=== PATIENT | female | born 1965 | race Caucasian/White ===

== ENCOUNTER → 2018-07-10 16:13 | Outpatient (CLI) | payer OTHER, SELFPAY ==
--- NOTE | 2018-07-10 | DI.MRI.S_ITS ---
PROCEDURE: MR CERVICAL SPINE WO CON INDICATIONS: DISC DEGENERATION TECHNIQUE: Noncontrast sagittal T1 spin echo and T2 fast spin echo, sagittal STIR, foraminal oblique sagittal T2 fast spin echo, and axial gradient echo or T2 fast spin echo through the cervical spine. COMPARISON: [facility], US, THYROID, 02/07/2011, 10:06. [facility], US, THYROID, 07/18/2017, 14:27. FINDINGS: Image quality: Excellent. Alignment and Curvature: Reversal of the normal cervical lordosis, centered at C4-C5. Bone Marrow: Diffuse endplate degenerative spurring and sclerosis. Spinal Cord: Visualized spinal cord has normal size and signal. Incidentally noted low-lying cerebellar tonsils Paraspinous Soft Tissues: Thyroid is diffusely enlarged, with heterogeneous nodular/cystic appearance, and further assessment could be performed with dedicated ultrasound. C2-C3: Normal appearance. C3-C4: Normal appearance. C4-C5: Bilateral uncovertebral arthropathy and posterior intervening disc osteophyte complex, and bilateral facet disease. Minimal canal narrowing. Moderate right and mild left foraminal stenoses. C5-C6: Bilateral uncovertebral arthropathy and posterior intervening disc osteophyte complex, which is mildly asymmetric, left greater than right, and bilateral facet arthropathy. Mild to moderate canal narrowing with effacement of the anterior thecal sac. Severe left and moderate right foraminal narrowing C6-C7: Bilateral uncovertebral arthropathy and posterior intervening disc osteophyte complex, and bilateral facet disease. Mild/moderate canal narrowing. Mild right and severe left foraminal stenoses. C7-T1: Bilateral uncovertebral arthropathy and posterior intervening disc osteophyte complex, mild. No canal stenosis. No left foraminal narrowing. Nsog-lh-enebtsim right foraminal stenosis. IMPRESSION: [id number] canal narrowing at C5-C6 and C6-C7. Severe left foraminal stenoses at C5-6 and C6-C7. [id number]-[id number] right C7-T1 and C4-C5 foraminal stenoses. Heterogeneous enlarged thyroid. Continued surveillance with thyroid ultrasound recommended Reversal of the normal cervical lordosis Incidentally noted are low-lying cerebellar tonsils Dictated by: Damien Brenner M.D. on 07/13/2018 at 8:15 Approved by: Damien Brenner M.D. on 07/13/2018 at 8:30
== END ==
PROVIDERS: Visit Provider Orthopaedic Surgery
DX: M48.02 Spinal stenosis, cervical region (principal); E04.9 Nontoxic goiter, unspecified
CPT/HCPCS: 72141

== ENCOUNTER → 2018-08-17 14:00 | Outpatient (CLI) | payer OTHER, SELFPAY ==
--- NOTE | 2018-08-17 | DI.MG.S_ITS ---
BILATERAL DIGITAL SCREENING MAMMOGRAM 3D/2D WITH CAD: 08/17/2018 CLINICAL: Routine screening. Comparison is made to exam dated: 09/10/2016 mammogram - [facility]. The tissue of both breasts is heterogeneously dense. This may lower the sensitivity of mammography. Current study was also evaluated with a Computer Aided Detection (CAD) system. No significant masses, calcifications, or other findings are seen in either breast. There has been no significant interval change. IMPRESSION: NEGATIVE There is no mammographic evidence of malignancy. A 1 year screening mammogram is recommended. This exam was interpreted at Station ID: [id number]. NOTE: For mammograms, a report in lay terms will be sent to the patient. Approximately 15% of breast malignancies will not be visualized mammographically. In the management of a palpable breast mass, a negative mammogram must not discourage biopsy of a clinically suspicious lesion. Electronically Signed By: Branden wilson/codi:08/17/2018 15:55:29 letter sent: Normal Exam ACR BI-RADS Category 1: Negative [id number]
--- NOTE | 2018-08-17 | DI.US.S_ITS ---
PROCEDURE: US THYROID INDICATIONS: Nontoxic goiter, unspec ROUTINE SCREENING WILLIAM TECHNIQUE: Real-time scanning was performed of the thyroid gland, with image documentation. COMPARISON: [facility], US, THYROID, 07/18/2017, 14:27. FINDINGS: Right: Thyroid lobe measures 7.6 x 4.2 x 2.8 cm, and is homogeneous in echotexture. Left: Thyroid lobe measures 6.6 x 3.4 x 1.9 cm, and is homogenous in echotexture. Isthmus: 1.3 mm thick. Nodule number: 1 Location: Right mid Size: Increased measuring 2.4 x 1.4 x 2.3 cm. Composition: Predominately solid Echogenicity: Hypoechoic Shape: wider than tall. Margins: Smooth Echogenic foci: None Total points: 4 ACR TI-RADS category: Moderately suspicious Nodule number: 2 Location: Left superior Size: Unchanged at 1.8 x 2.6 x 1.8 cm. Composition: Solid Echogenicity: Hypoechoic Shape: wider than tall. Margins: Smooth Echogenic foci: None Total points: 4 ACR TI-RADS category: Moderately suspicious Nodule number: 3 Location: Left mid Size: Unchanged at 1.1 x 0.8 x 1.0 cm. Composition: Mixed cystic and solid Echogenicity: Heterogeneous Shape: wider than tall. Margins: Smooth Echogenic foci: None Total points: 3 ACR TI-RADS category: Mildly suspicious Nodule number: 4 Location: Left isthmus Size: 1.1 x 1.2 x 1.6 cm. Composition: Predominately cystic Echogenicity: Anechoic Shape: wider than tall. Margins: Smooth Echogenic foci: None Total points: 0 ACR TI-RADS category: Benign colloid cyst IMPRESSION: Bilateral thyroid nodules as above. Recommend fine needle aspiration involving the #1 right midpole and # 2 left superior pole nodules and continued sonographic surveillance of the additional nodules as below. ACR TI-RADS definitions and recommendations: TI-RADS 1 (benign): 0 points. FNA not needed. TI-RADS 2 (not suspicious): 2 points. FNA not needed. TI-RADS 3 (mildly suspicious): 3 points. * FNA if 2.5 cm or larger, follow up if 1.5 cm or larger (at 1, 3, and 5 years). TI-RADS 4 (moderately suspicious): 4-6 points. * FNA if 1.5 cm or larger, follow up if 1 cm or larger (at 1, 2, 3, and 5 years). TI-RADS 5 (highly suspicious): 7 points or more. * FNA if 1 cm or larger, follow up if 0.5 cm or larger (every year for 5 years). Dictated by: Joey DOLL Interpreted: Danii Montoya MD on 08/17/2018 at 15:44 Approved by: Danii Montoya M.D. on 08/17/2018 at 16:59
== END ==
PROVIDERS: PCP Naturopath; Visit Provider Naturopath
DX: Z12.31 Encounter for screening mammogram for malignant neoplasm of breast (principal); E04.2 Nontoxic multinodular goiter
CPT/HCPCS: 76536; 77063; 77067

== ENCOUNTER → 2024-04-22 10:26 | Outpatient (CLI) | payer OTHER, SELFPAY ==
--- NOTE | 2024-04-22 10:29 | DI.MG.S_ITS ---
BILATERAL DIGITAL SCREENING MAMMOGRAM 3D/2D WITH CAD: 04/22/2024 CLINICAL: Routine screening. Comparison is made to exams dated: 11/06/2022 mammogram - outside [facility], 08/17/2018 mammogram - [facility], and 09/10/2016 mammogram - [facility]. The breasts are heterogeneously dense, which may obscure small masses (category c / 51-75% glandular tissue). Current study was also evaluated with a Computer Aided Detection (CAD) system. No significant masses, calcifications, or other findings are seen in either breast. There has been no significant interval change. IMPRESSION: NEGATIVE There is no mammographic evidence of malignancy. A 1 year screening mammogram is recommended. Based on the Tyrer Cuzick model (a risk assessment model) the patient's lifetime risk is 11.1% and her 10 year risk is 4.5%. According to the ACR, ACS, and NCCN guidelines, an annual breast MRI exam along with mammogram is recommended if the patient's lifetime risk is 20% or greater. This exam was interpreted at Station ID: [id number]. NOTE: For mammograms, a report in lay terms will be sent to the patient. Approximately 15% of breast malignancies will not be visualized mammographically. In the management of a palpable breast mass, a negative mammogram must not discourage biopsy of a clinically suspicious lesion. Electronically Signed By: Maddison bean/codi:04/22/2024 17:20:04 letter sent: Normal Exam ACR BI-RADS Category 1: Negative
== END ==
LOC: MAMMO 10:27
PROVIDERS: PCP Naturopath; Referring Provider Naturopath; Visit Provider Naturopath
DX: Z12.31 Encounter for screening mammogram for malignant neoplasm of breast (principal); R92.323 Mammographic fibroglandular density, bilateral breasts
CPT/HCPCS: 77063; 77067

== ENCOUNTER → 2025-06-21 12:21 | Outpatient (CLI) | payer OTHER, SELFPAY ==
--- NOTE | 2025-06-21 12:23 | DI.MG.S_ITS ---
MM screening mammo BI: 06/21/2025. BI-RADS: 1 CLINICAL: 59-year old female for bilateral screening mammogram. Tyrer-Cuzick lifetime risk of 10.9%. No personal or first-degree family history of breast cancer. PRIOR EXAMS 04/22/2024, 08/17/2018. MAMMOGRAPHY TECHNIQUE: 2D and 3D (tomosynthesis) digital mammographic views obtained, with additional images as needed for full coverage. Current study was also evaluated with a Computer Aided Detection (CAD) system. DENSITY C. The breasts are heterogeneously dense, which may obscure small masses. MAMMOGRAPHY FINDINGS Bilateral: No suspicious mass, asymmetry, microcalcification, or other abnormality seen. IMPRESSION: * No evidence of malignancy. RECOMMENDATIONS Bilateral * Annual screening mammography. OVERALL ASSESSMENT CATEGORY BI-RADS-1: Negative. The [employer] recommends annual screening mammography beginning at age 40 for women with average risk of breast cancer. ELECTRONICALLY SIGNED: Branden Theodore M.D. on 06/22/2025 at 06:50:15 AM PT Interpreting Station ID: [id number]
== END ==
LOC: MAMMO 12:22
PROVIDERS: PCP Nurse Practitioner Family; Referring Provider Nurse Practitioner Family; Visit Provider Nurse Practitioner Family
DX: Z12.31 Encounter for screening mammogram for malignant neoplasm of breast (principal); R92.333 Mammographic heterogeneous density, bilateral breasts
CPT/HCPCS: 77063; 77067